=== PATIENT | male | born 1975 | race Caucasian/White ===

== ENCOUNTER 2020-11-01 15:18 | Emergency (ER) | payer OTHER, SELFPAY ==
[2020-11-01] VITALS (7 sets, daily range): BP systolic 121–138; BP diastolic 89–99; PULSE 89–101; RESP 18–27; TEMP 36.2–36.7; O2SAT 93–100
--- NOTE | 2020-11-01 15:46 | ED.AMS ---
HPI - Altered Mental Status General Chief Complaint: Altered Mental Status Stated Complaint: ams Time Seen by Provider: 11/01/20 15:45 History of Present Illness HPI narrative: Brought in by EMS for slurred speech and strange behavior. He reports that he does not know why he is here. He believes that his called EMS. He thinks he may have taken his prescribed dose of trazodone. He denies any other drugs or alcohol. In the triage note it suggests that his may have told somone that he was drinking last night. History limited by mental status Review of Systems Review of Systems: ROS unobtainable: Yes unobtainable due to mental status [facility] Past Medical History Medical History (Updated 11/07/20 @ 13:42 by Jovani William MD) Alcohol abuse Insomnia Comments History limited by mental status Exam Const: General: healthy appearing, no acute distress and alert HENMT: Head: normal to inspection Eyes: Pupils: Equal, round and reactive pupils present Neck: Neck: normal visual inspection and no lymphadenopathy Chest: Chest palpation & inspection: no tenderness Resp: Effort & Inspection: normal respiratory effort Auscultation: clear to auscultation bilaterally, no rales, no rhonchi and no wheezes Cardio: Jugular venous distension: no JVD Rate: regular rate Rhythm: regular rhythm Heart sounds: no murmurs GI: Inspection: non-distended GI Palp: Yes Soft to palpation and No Tenderness to palpation present (GI) Skin: General skin exam: normal color Neuro: General: patient oriented x3, moves all extremities, no focal motor deficits and CN's II-XI intact bilaterally Speech: Abnormal speech present slurred Extrem: General: no edema Psych: Appearance: well kempt Affect: normal affect Course Vital Signs Vital signs: Vital Signs Temperature 36.7 C 11/01/20 15:20 Pulse Rate 101 H 11/01/20 15:20 Respiratory Rate 20 11/01/20 15:20 Blood Pressure 127/95 H 11/01/20 15:20 Pulse Oximetry 100 11/01/20 15:20 Temperature 36.4 C L 11/01/20 19:20 Pulse Rate 89 11/01/20 19:20 Respiratory Rate 18 11/01/20 19:20 Blood Pressure 138/89 11/01/20 19:20 Pulse Oximetry 99 12/26/20 19:20 MDM - Altered Mental Status MDM Narrative Medical decision making narrative: Ethanol level very high and seems to be a sufficient explanation for his mental status. I will observe for a breif time and discharge once he has a sober ride. Lab Data Attestation: I reviewed the patient's lab results. Result diagrams: 11/01/20 16:24 11/01/20 16:24 Labs: Lab Results 11/01/20 11/01/20 11/01/20 Range/Units 16:24 16:24 16:24 WBC 3.7 L (4.5-10.0) K/mm3 RBC 4.41 L (4.6-6.20) M/mm3 Hgb 14.3 (14.0-18.0) g/dL Hct 40.9 L (42.0-52.0) % MCV 92.7 (80-100) fl MCH 32.4 (26-34) pg MCHC 35.0 (32-36) g/dl RDW 11.5 (11.5-14.5) % Plt Count 133 L (150-375) k/mm3 MPV 8.8 (7.4-10.4) fl Immature Gran % (Auto) 1.1 H (0-0.5) % Neut % (Auto) 49.3 (45.5-73.1) % Lymph % (Auto) 34.9 (18.3-44.2) % Mcminn % (Auto) 12.3 H (2.6-8.5) % Eos % (Auto) 1.6 (0-4.4) % Baso % (Auto) 0.8 (0.2-1.2) % Lymph # (Auto) 1.28 (0.9-3.2) K/mm3 Mcminn # (Auto) 0.5 (0.1-0.6) K/mm3 Eos # (Auto) 0.1 (0-0.3) K/mm3 Baso # (Auto) 0.0 (0.0-0.1) K/mm3 Abs Immat Gran (auto) 0.04 H (0.00-0.031) K/mm3 Absolute Neuts (auto) 1.8 (1.3-6.7) K/mm3 Absolute Nucleated RBC 0.0 (0.0-0.012) K/mm3 Nucleated RBC % 0.0 (0.0-0.2) % Sodium 140 (137-145) mmol/L Potassium 4.0 (3.4-5.0) mmol/L Chloride 100 (98-107) mmol/L Carbon Dioxide 28 (22-30) mmol/L Anion Gap 12 (8-16) mmol/L BUN 13 (9-20) mg/dL Creatinine 0.80 (0.7-1.3) mg/dL Estim Creat Clear Calc 114 ml/min Estimated GFR > 60 (59 - ) Glucose 121 H (75-110) mg/dL Calcium 8.9 (8.4-10.2) mg/dL Total Bilirubin 0.5 (0.2-1.3)
--- NOTE | 2020-11-01 15:56 | ECG_ITS ---
Measurements Intervals [place] Rate: 92 P: 34 ID: 179 QRS: -12 QRSD: 117 T: 0 QT: 371 QTc: 460 Interpretive Statements SINUS RHYTHM INTRAVENTRICULAR CONDUCTION DELAY ST ELEVATION IN ANTERIOR LEADS- PROBABLY EARLY REPOLARIZATION BORDERLINE ECG Electronically Signed On 11-01-2020 20:19:40 [employer] PING [employer] TABLE by Lauri Orantes D.O.
[2020-11-01 16:28] LABS: Basophils Percent Auto 0.8 % (0.2-1.2); Eosinophils Absolute Auto 0.1 K/mm3 (0-0.3); Eosinophils Percent Auto 1.6 % (0-4.4); Hematocrit 40.9 % (42.0-52.0); Hemoglobin 14.3 g/dL (14.0-18.0); Immature Granulocyte Absolute 0.04 K/mm3 (0.00-0.031); Immature Granulocyte Percent A 1.1 % (0-0.5); Lymphocytes Absolute Auto 1.28 K/mm3 (0.9-3.2); Lymphocytes Percent Auto 34.9 % (18.3-44.2); Mean Corpuscular Hemoglobin 32.4 pg (26-34); Mean Corpuscular Volume 92.7 fl (80-100); Mean Platelet Volume 8.8 fl (7.4-10.4); Monocytes Absolute Auto 0.5 K/mm3 (0.1-0.6); Monocytes Percent Auto 12.3 % (2.6-8.5); Neutrophils Absolute Auto 1.8 K/mm3 (1.3-6.7); Neutrophils Percent Auto 49.3 % (45.5-73.1); Platelet Count Result 133 k/mm3 (150-375); Red Blood Count 4.41 M/mm3 (4.6-6.20); Red Cell Distribution Width 11.5 % (11.5-14.5); White Blood Count 3.7 K/mm3 (4.5-10.0)
[2020-11-01 16:40] LABS: Alanine Aminotransferase 105 U/L (4-50); Albumin Level 4.4 g/dL (3.5-5.1); Alkaline Phosphatase 69 U/L (38-126); Anion Gap 12 mmol/L (8-16); Aspartate Amino Transferase 107 U/L (17-59); Bilirubin,Total 0.5 mg/dL (0.2-1.3); Blood Urea Nitrogen 13 mg/dL (9-20); Calcium 8.9 mg/dL (8.4-10.2); Carbon Dioxide 28 mmol/L (22-30); Chloride 100 mmol/L (98-107); Estimated CRCL calculation 114 ml/min; Estimated Glomerular Filt Rate > 60; Glucose 121 mg/dL (75-110); Sodium 140 mmol/L (137-145)
[2020-11-01 16:44] LABS: Acetaminophen < 10 ug/mL (10-30); Salicylate < 1.0 mg/dL (2-20)
[2020-11-01 16:49] LABS: Ethanol 442 mg/dL (<10)
--- NOTE | 2020-11-01 18:00 | PC.NURSE ---
Patient's in room with patient at this time. Ok to update patient's per the patient. She was updated and remained at bedside with the patient.
--- NOTE | 2020-11-01 18:30 | PC.NURSE ---
Second attempt to have patient provided urine sample. He was unable to at this time. EDP updated and reports sample not needed.
== END 2020-11-01 19:24 | disposition home or self-care (01) ==
PROVIDERS: Emergency Provider Emergency Medicine
DX: F10.129 Alcohol abuse with intoxication, unspecified (principal); Y90.8 Blood alcohol level of 240 mg/100 ml or more
CPT/HCPCS: 36415; 80053; 80307; 85025; 93005; 99283